=== PATIENT | male | born 1980 | race American Indian/Alaskan Native ===

== ENCOUNTER → 2016-09-25 | Outpatient (CLI) | payer OTHER ==
[~2016-09-25] MED LIST: FISH OIL 1,001000 M1 PO; FLONASE16 GM SPRAY; HYDROCHLOROTHIA25 M1 PO; KRILL OIL500 MG PO; PRILOSEC 20 MG20 MG PO; ZYRTEC10 M2 PO
--- NOTE | ~2016-09-25 | EKG ---
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
== END ==
LOC: CV 14:06
DX: E11.9 Type 2 diabetes mellitus without complications (principal)